=== PATIENT | female | born 1995 | race American Indian/Alaskan Native ===

== ENCOUNTER 2017-07-20 16:25 | Emergency (ER) | payer SELFPAY ==
[2017-07-20 17:06] LABS: Basophils % (Auto) 0.4 % (0.0-1.8); Eosinophils % (Auto) 2.5 % (0.0-4.3); Hematocrit 42.6 % (30.3-42.9); Hemoglobin 14.4 gm/dl (10.1-14.3); Mean Corpuscular HGB Conc 34 % (30-34); Mean Corpuscular Hemoglobin 28 pg (28-32); Mean Corpuscular Volume 84 fl (79-97); Platelet Count 300 K/mm3 (140-440); Red Blood Count 5.07 M/mm3 (3.65-5.03); White Blood Count 6.4 K/mm3 (4.5-11.0)
[2017-07-20 17:46] LABS: Anion Gap 23 mmol/L; BUN/Creatinine Ratio 11; Blood Urea Nitrogen 9 mg/dL (7-17); Calcium 9.8 mg/dL (8.4-10.2); Carbon Dioxide 26 mmol/L (22-30); Chloride 96.6 mmol/L (98-107); Glucose 90 mg/dL (65-100); Potassium 3.8 mmol/L (3.6-5.0); Sodium 142 mmol/L (137-145)
[2017-07-20 18:24] LABS: Bilirubin,Urine NEG (Negative); Blood,Urine NEG (Negative); Ketones,Urine 20 mg/dL (Negative); Leukocyte Esterase,Urine NEG (Negative); Mucus,Urine 1+ /HPF; Nitrite,Urine NEG (Negative)
[2017-07-20 18:29] VITALS: BP 110/74
[2017-07-20] MEDS ORDERED: NACL 0.9% 500 ML 500 ML IV ONE (18:31)
--- NOTE | 2017-07-20 19:12 | XRay Report ---
FINAL REPORT PROCEDURE: XR CHEST 1V TECHNIQUE: A portable AP chest radiograph was obtained at 07/20/2017 23:28 (T) . CPT 59478 HISTORY: Shortness of breath. COMPARISON: No prior studies are available for comparison. FINDINGS: Heart: Normal. Mediastinum/Vessels: Normal. Lungs/Pleural space: Normal. Bony thorax: No acute osseous abnormality. Life support devices: None. IMPRESSION: No radiographic evidence of acute cardiopulmonary disease.
[2017-07-20] MEDS ORDERED: NACL 0.9% 1000 ML 1,000 ML ONE (19:19)
--- NOTE | 2017-07-20 20:18 | Cat Scan Report ---
FINAL REPORT EXAM: CT NECK W CON HISTORY: post op swellling TECHNIQUE: Axial images were performed from the skullbase to the thoracic inlet following IV contrast. Multiplanar reformats are performed on the acquisition scanner. Comparison: None FINDINGS: Clear imaged lung apices. Imaged intracranial contents are normal. Conjugate gaze. Prominent soft palate and adenoids. Prominent faucial tonsils. The soft palate/uvula is enlarged but not impinging on the airway. The epiglottis is within normal limits. The vallecular, median glossal epiglottic fold, area epiglottic folds and pyriform sinuses are unremarkable. The vasculature is normal. Thyroid gland enhances normally. Sternocleidomastoid, parotid glands, submandibular glands are within normal limits. There is slight prominence of the right mass or muscle relative to the left. The pterygoids are within normal limits. There are multiple small cervical chain lymph nodes. There is no neck abscess or mass lesion. There is mild ethmoid air cell disease. There is reversal of the normal cervical lordosis which may be related to muscular spasm, apex at C4. There is no significant discogenic or osteophytic disease. IMPRESSION: Prominent tonsillar tissue/adenoids and soft palate/uvula without airway compromise or evidence for abscess. The density of the tissue is not significantly hyperemic or compatible with blood products. By history the patient has undergone tonsillectomy/adenoidectomy. Reversal of the normal cervical lordosis may be related to muscular spasm from pain.
--- NOTE | 2017-07-20 21:03 | Emergency Department Report ---
ED General Adult HPI - General Chief complaint: Dyspnea/Respdistress Stated complaint: SORE THROAT Time Seen by Provider: 07/20/17 18:31 Source: patient Mode of arrival: Ambulatory Limitations: No Limitations - History of Present Illness Initial comments: 21-year-old female had a tonsillectomy and adenoidectomy U week ago in [place]. Patient has been in [place] for the last 5 days. She is a persistent postop pain. They're worried that she may be having some worsening difficulty swallowing. They deny fever denied bleeding denies stiff neck headache or other complaints no chest pain or abdominal pain. She is taking oral liquids hydrocodone for pain she has been advance her diet they wanted to make sure no postop complications because she's having persistent pain in the worried about her swallowing. -: Gradual, days(s) - Related Data Allergies Allergy/AdvReac Type Severity Reaction Status Date / Time No Known Allergies Allergy Unverified 07/20/17 16:40 ED Review of Systems ROS: Stated complaint: SORE THROAT Other details as noted in HPI Comment: All other systems reviewed and negative Constitutional: denies: diaphoresis, fever, malaise ENT: as per HPI. denies: dental pain, hearing loss, congestion Respiratory: denies: shortness of breath, SOB with exertion, SOB at rest, wheezing Cardiovascular: denies: chest pain, palpitations, dyspnea on exertion, edema, syncope, paroxysmal nocturnal dyspnea Gastrointestinal: denies: abdominal pain, nausea, vomiting, diarrhea, constipation, hematemesis, melena, hematochezia Genitourinary: denies: frequency, hematuria, discharge Neurological: denies: numbness, paresthesias, confusion Psychiatric: denies: auditory hallucinations, visual hallucinations, homicidal thoughts, suicidal thoughts ED Past Medical Hx - Past Medical History Previous Medical History?: No - Surgical History Additional Surgical History: tonsillectomy/adnoids 07/15/2017 - Social History Smoking Status: Unknown if ever smoked Substance Use Type: None ED Physical Exam - General Limitations: No Limitations General appearance: alert, in no apparent distress - Head Head exam: Present: atraumatic, normocephalic - Eye Eye exam: Present: normal appearance, PERRL, EOMI Pupils: Present: normal accommodation - ENT ENT exam: Present: other (no active bleeding or no drooling nomass nomass noabscess no stridor) - Neck Neck exam: Present: normal inspection. Absent: tenderness, meningismus, lymphadenopathy - Respiratory Respiratory exam: Present: normal lung sounds bilaterally. Absent: respiratory distress, wheezes, rales, rhonchi, stridor, chest wall tenderness, accessory muscle use, decreased breath sounds, prolonged expiratory - Cardiovascular Cardiovascular Exam: Present: regular rate, normal rhythm, normal heart sounds - GI/Abdominal GI/Abdominal exam: Present: soft. Absent: distended, tenderness, guarding, rebound, rigid, mass, bruit, pulsatile mass - Extremities Exam Extremities exam: Present: normal inspection, full ROM, normal capillary refill. Absent: tenderness, pedal edema, joint swelling, calf tenderness - Back Exam Back exam: Present: normal inspection, full ROM. Absent: tenderness, CVA tenderness (R) - Neurological Exam Neurological exam: Present: alert, oriented X3, CN II-XII intact, normal gait. Absent: motor sensory deficit ED Course Vital Signs 07/20/17 07/20/17 16:32 18:28 Temperature 98.8 F 98.9 F Pulse Rate 118 H 103 H Respiratory 18 19 Rate Blood Pressure 106/81 Blood Pressure 110/74 [Left] O2 Sat by Pulse 97 97 Oximetry ED Medical Decision Making - Lab Data Result diagrams: 07/20/17 16:43 07/20/17 16:43 - EKG Data EKG shows normal: sinus rhythm - EKG Data When compared to previous EKG there are: previous EKG unavailable Interpretation: no acute changes, nonspecific ST-T wave meghan - Radiology Data Radiology results: report reviewed - Medical Decision Making CT shows no abscess no airway compromise no hematoma patient tolerating by mouth in ED stable for outpatient follow-up. The remainder of the workup and exam is unremarkable no further emergent evaluation is required at this time she is stable for follow-up to her postop doctor continue the postoperative instructions that he gave. nontoxic no stridor no drooling stable outpt f/u. Critical care attestation.: If time is entered above; I have spent that time in minutes in the direct care of this critically ill patient, excluding procedure time. ED Disposition Clinical Impression: Post-op pain Disposition: TO HOME OR SELFCARE Is pt being admited?: No Condition: Stable Instructions: Pharyngitis (ED) Additional Instructions: Return immediately if new alarming symptoms and follow-up with her postoperative doctor in 2 days Referrals: MIC MARIA MD [Primary Care Provider] - 3-5 Days Time of Disposition: 21:07
== END 2017-07-20 22:25 | disposition home or self-care (01) ==
LOC: ED 16:25
DX: G89.18 Other acute postprocedural pain (principal); Z90.89 Acquired absence of other organs
CPT/HCPCS: 36415; 70491; 71010; 80048; 81001; 81025; 85025; 93005; 93010; 99284; J7030; Q9967